=== PATIENT | female | born 1980 | race African-American/Black ===

== ENCOUNTER 2017-01-01 18:51 | Emergency (ER) | payer MEDICAID ==
[~2017-01-01] VITALS: Ht 170.2 cm; Wt 103.0 kg
[2017-01-01] MEDS ORDERED: IBUPROFEN 600MG TABLET PO ONE (20:30)
[2017-01-01 20:52] VITALS: BP 156/102
== END 2017-01-01 21:39 | disposition home or self-care (01) ==
LOC: ER 21:23
DX: J02.8 Acute pharyngitis due to other specified organisms (principal); B96.89 Other specified bacterial agents as the cause of diseases classified elsewhere
CPT/HCPCS: 99283

== ENCOUNTER 2022-04-19 10:49 | Emergency (ER) | payer MEDICAID ==
[~2022-04-19] VITALS: Ht 170.2 cm; Wt 100.0 kg
[2022-04-19] MEDS ORDERED: DIPH25CA83 MT (12:23)
[2022-04-19] MEDS ORDERED: P50 PO (12:23)
[2022-04-19] MEDS ORDERED: DIPHENHYDRAMINE 25MG CAPSULE PO ONE (12:30)
[2022-04-19] MEDS ORDERED: PREDNISONE 20MG TABLET PO ONE (12:30)
[2022-04-19 13:08] VITALS: BP 162/95
== END 2022-04-19 13:10 | disposition home or self-care (01) ==
LOC: ER 10:49
DX: T78.49XA Other allergy, initial encounter (principal); R03.0 Elevated blood-pressure reading, without diagnosis of hypertension; Z98.890 Other specified postprocedural states; X58.XXXA Exposure to other specified factors, initial encounter
CPT/HCPCS: 99282; J7512; Q0163

== ENCOUNTER 2022-11-25 09:11 | Emergency (ER) | payer MEDICAID, OTHER ==
[~2022-11-25] VITALS: Ht 170.2 cm; Wt 105.0 kg
[~2022-11-25 09:11] MED LIST: DIPH25CA83 MT; P50 PO
[2022-11-25] MEDS ORDERED: DEXAMETHASONE 4MG TABLET PO ONE (10:30)
[2022-11-25] MEDS ORDERED: ACET-2708 MT (11:49)
[2022-11-25] MEDS ORDERED: AMOX-494 MT (11:57)
[2022-11-25 17:30] VITALS: BP 178/100
== END 2022-11-25 12:22 | disposition home or self-care (01) ==
LOC: ER 09:11
DX: J02.9 Acute pharyngitis, unspecified (principal); R05.9 Cough, unspecified; Z98.890 Other specified postprocedural states; Z79.899 Other long term (current) drug therapy
CPT/HCPCS: 81025; 87070; 87430; 99283; J8540